=== PATIENT | male | born 1970 | race Caucasian/White ===

== ENCOUNTER 2016-10-31 07:44 | Inpatient (IN) | payer BC ==
[~2016-10-31] VITALS: Ht 182.9 cm; Wt 86.0 kg
[2016-10-31] VITALS (41 sets, daily range): BP systolic 101–150; BP diastolic 59–89; PULSE 72–94; RESP 9–20; Ht 182.9 cm; Wt 86.0 kg
[2016-10-31] MEDS ORDERED: LIDOCAINE 2% (SDV) 5 ML INJ ONE (08:24)
[2016-10-31] MEDS ORDERED: SUCCINYLCHOLINE CHLORIDE 100 MG/5 ML SYG IV ONE (08:24)
[2016-10-31] MEDS ORDERED: MIDAZOLAM 1 MG/ML 2 ML INJ ONE (08:24)
[2016-10-31] MEDS ORDERED: PROPOFOL 20 ML ONE (08:24)
[2016-10-31] MEDS ORDERED: FENTAnyl 50 MCG/ML VIAL ONE (08:24)
[2016-10-31] MEDS ORDERED: ATOR40TA68 PO (08:28)
[2016-10-31] MEDS ORDERED: ICOS1CAP PO (08:30)
[2016-10-31] MEDS ORDERED: CEFAZOLIN 2 GM/50 ML (PMX) 50 ML IVPB SCH (09:00)
[2016-10-31] MEDS ORDERED: GELATIN SIZE 100 SPONGE ONE (09:02)
[2016-10-31] MEDS ORDERED: THROMBIN 5000 UNIT VIAL ONE (09:02)
[2016-10-31] MEDS ORDERED: BUPIVACAINE 0.25% (MPF) 10 ML 10 ML VIAL ONE (09:02)
[2016-10-31] MEDS ORDERED: POLYMYXIN/BACITRACIN 1L IRRIG ONE (09:02)
[2016-10-31] MEDS ORDERED: DEXAMETHASONE 4 MG/ML 1 ML INJ ONE (09:28)
[2016-10-31] MEDS ORDERED: ONDANSETRON 4 MG INJ ONE (09:28)
[2016-10-31] MEDS ORDERED: METOCLOPRAMIDE 10 MG INJ ONE (09:28)
[2016-10-31] MEDS ORDERED: HYDROmorphONE 2 MG/ML SYG ONE (09:38)
[2016-10-31] MEDS ORDERED: LABETALOL HCL 20MG INJ ONE (09:42)
[2016-10-31] MEDS ORDERED: hydrALAzine 20 MG INJ ONE (09:45)
[2016-10-31] MEDS ORDERED: ACETAMINOPHEN 1000MG/100ML IV 100 ML ONE (09:48)
[2016-10-31] MEDS ORDERED: PROCHLORPERAZINE 10 MG INJ IV PRN (10:00)
[2016-10-31] MEDS ORDERED: MEPERIDINE 25 MG INJ IV PRN (10:00)
[2016-10-31] MEDS ORDERED: FENTAnyl 50 MCG/ML VIAL IV PRN (10:00)
[2016-10-31] MEDS ORDERED: LABETALOL HCL 20MG INJ IV PRN (10:00)
[2016-10-31] MEDS ORDERED: EPHEDrine SULFATE 50 MG/5 ML SYG IV PRN (10:00)
[2016-10-31] MEDS ORDERED: hydrALAzine 20 MG INJ IV PRN (10:00)
[2016-10-31] MEDS ORDERED: DIPHENHYDRAMINE 50 MG INJ IV PRN (10:00)
[2016-10-31] MEDS ORDERED: HYDROmorphONE (0.2 MG/ML) 10ML SYG IV PRN ×2 (10:00)
[2016-10-31] MEDS ORDERED: ONDANSETRON 4 MG INJ IV PRN ×2 (10:00→11:30)
[2016-10-31] MEDS ORDERED: SUGAMMADEX SODIUM 200 MG/2 ML VIAL IV ONE (10:07)
[2016-10-31] MEDS ORDERED: HYDROmorphONE 0.2 MG/ML PCA ONE (11:03)
[2016-10-31] MEDS ORDERED: DEXTROSE 5%-0.45% NACL 1,000 ML IV SCH (11:30)
[2016-10-31] MEDS ORDERED: ACETAMINOPHEN PO ×2 (11:30)
[2016-10-31] MEDS ORDERED: CEPASTAT LOZENGE MT PRN (11:30)
[2016-10-31] MEDS ORDERED: ZOLPIDEM 5 MG TAB PO PRN (11:30)
[2016-10-31] MEDS ORDERED: TRIMETHOBENZAMIDE IM PRN (11:30)
[2016-10-31] MEDS ORDERED: DIAZEPAM 10 MG IM PRN (11:30)
[2016-10-31] MEDS ORDERED: DIAZEPAM 5 MG TAB PO PRN (11:30)
[2016-10-31] MEDS ORDERED: ALUMINUM HYDROXIDE PO PRN (11:30)
[2016-10-31] MEDS ORDERED: DIPHENHYDRAMINE 50 MG CAP PO PRN (11:30)
[2016-10-31] MEDS ORDERED: PROCHLORPERAZINE 10 MG INJ IM PRN (11:30)
[2016-10-31] MEDS ORDERED: HYDROmorphONE 0.2 MG/ML PCA IV SCH (11:30)
[2016-10-31] MEDS ORDERED: PROCHLORPERAZINE 10 MG TAB PO PRN (11:30)
[2016-10-31] MEDS ORDERED: NALOXONE 0.4 MG IV PRN (11:30)
[2016-10-31] MEDS ORDERED: SIMETHICONE PO PRN (11:30)
[2016-10-31] MEDS ORDERED: HYDROCODONE PO ×2 (11:30)
[2016-10-31] MEDS ORDERED: MAGNESIUM HYDROXIDE PO PRN (11:30)
[2016-10-31] MEDS ORDERED: ACETAMINOPHEN 325 MG TAB PO PRN (11:30)
[2016-10-31] MEDS ORDERED: BETHANECHOL 25 MG TAB PO PRN (11:30)
[2016-10-31] MEDS: CEFAZOLIN IVPB SCH ×3 (12:00→23:46)
[2016-10-31] MEDS: DEXTROSE IVPB SCH ×3 (12:00→23:46)
--- NOTE | 2016-10-31 12:20 | RADRPT ---
PROCEDURE: XR Lumbar Spine one view. CLINICAL INDICATION: Low back pain. Intraoperative. TECHNIQUE: Prone portable cross-table lateral. COMPARISON: No prior studies are available for comparison. FINDINGS: For the purposes of this report, the last apparent true disc level is considered to be L5-S1. Based on this, the posterior needle markers are present overlying the L5-S1 level and the L5 spinous proc ess level. IMPRESSION: 1. Intraoperative imaging as described above. RPTAT: QQ .Mik Jiménez MD, Date Time Electronically viewed and signed by .Mik Jiménez MD, on 10/31/2016 12:20 .R/
--- NOTE | 2016-10-31 12:30 | RADRPT ---
PROCEDURE: XR Lumbar Spine one view. CLINICAL INDICATION: Low back pain. Intraoperative. TECHNIQUE: Prone portable cross-table lateral. COMPARISON: Prior study done earlier the same day. FINDINGS: For the purposes of this report, the last apparent true disc level is considered to be L5-S1. Based on this, the posterior surgical instrument is present overlying the L4-5 level. IMPRESSION: 1. Intraoperative imaging as described above. RPTAT: QQ .Mik Jiménez MD, MD Date Time Electronically viewed and signed by .Mik Jiménez MD, on 10/31/2016 12:30 .R/
--- NOTE | 2016-10-31 12:40 | OPR ---
DATE OF OPERATION: 10/31/2016 SURGEON: Chris Nails MD. BOARDING ROOM FIXER: yEad Knight MD. ANESTHESIOLOGIST: Dr. Brush. POSTOPERATIVE DIAGNOSIS: Herniated disc, L4-5 on the right with inferior extruded disc fragments. POSTOPERATIVE DIAGNOSIS: Herniated disc, L4-5 on the right with inferior extruded disc fragments. OPERATION PROCEDURES: 1. Right hemilaminotomy, L4. 2. Microdiskectomy L4-5 on the right. 3. Medial facetectomy, foraminotomy L4-5 on the right. 4. Cosmetic wound closure (2.6 cm). 5. Intraoperative nerve monitoring (60 minutes). 6. Lateral localizing lumbar radiographs (2). ANESTHESIA: General endotracheal. ESTIMATED BLOOD LOSS: 10 mL-none replaced. DRAINS: Two medium Hemovac drains employed. COMPLICATIONS: No complications. INDICATIONS: This is a 46-year-old male with persistent back and right leg pain which were unrelieved by conservative management. He has undergone a number of diagnostic studies including an MRI of the lumbar spine which demonstrated herniation of the L4-5 disc centrally and to the right with inferior extruded disc fragments. Treatment options discussed with the patient, electing to do surgery. OPERATIVE FINDINGS AT SURGERY: At surgery a moderate central and right paracentral herniation of the L4-5 disc was confirmed. The baseline intraoperative nerve monitoring revealed a decrease in the L5 potential on the left. A 50 percent of the L5 potential on the right of 60 percent and the S1 potentials bilaterally of 30 percent. These all returned to normal at the completion of the surgery. OPERATIVE PROCEDURE: With the patient supine position, after satisfactory induction of general endotracheal anesthesia by Dr. Brush, the patient was turned to the prone kneeling position on the Artem frame. All pressure points carefully padded. The back was prepped and draped in usual sterile fashion. Athrombic pumps were applied to the legs below the knees and venous stasis during and after the procedure. Two spinal needles placed next, felt to be the L4 and L5 spinous processes, lateral roentgenogram was taken which confirmed anatomic localization. A 2.6 cm incision encountered midline over the spinous process of L4, after the skin was infiltrated with 0.25 percent Marcaine without epinephrine for postoperative anesthesia. Superficial retractors were placed and hemostasis secure with electrocautery. Throughout the procedure copious amounts of antibacterial irrigating solution used to periodically irrigate the wound. The fascia was incised with the midline with a hot knife, and unilateral subperiosteal dissection carried out at L4 on the right. Deep retractors were placed and deep hemostasis secured electrocautery. A second intraoperative radiograph was taken with deep retractor was felt to be the L4-5 interspace, and this was confirmed on the second x-ray. A right hemilaminotomy L4 was then carried out using Leksell rongeur, Kerrison punch and curettes. Ligamentum flava was excised with sharp dissection. The operating microscope was moved into place. A medial facetectomy and foraminotomy was accomplished using small hand osteotome and mallet, Kerrison punches and curettes. The L5 root was then mobilized medially and protected with a D'Errlorna nerve root retractor using microdissection technique. This revealed a herniation of the L4-5 disc on the right. The 15 blade knife used to cut a tiny window in the anulus and posterior longitudinal ligament. Multiple and multiple degenerative disc fragments were harvested with a pituitary rongeur and sent to the lab for pathologic study. Additional fragments were harvested with Nimisha curettes. The thorough search thorough search of the floor of canal was made with an arthroscopic probe, no additional fragments were encountered. The epidural hemostasis was secured with bipolar electrocautery on a low setting. The anesthesiologist was then asked to perform a Valsalva maneuver to 40 mmHg. No spinal fluid leak was noted. The wound was then closed in layers over 2 medium Hemovac drains, 1 below the fascia, 1 above the fascia using #1 Vicryl [id number] approximating suture in deep musculature and deep fascia back. #2-0 Vicryl subcutaneous approximating sutures in subcu tissue and a #4-0 Vicryl subcuticular cosmetic closing suture on the skin. Dermabond and sterile compressive dressings were applied. The patient having tolerated the procedure well was then turned supine position onto his bed and extubated by Dr. Brush. He was transported to the Recovery room in satisfactory condition. At the conclusion of procedure, sponge, instrument counts were all correct. NEED FOR TRAFFIC COORDINATOR: During this spinal surgical procedure, my shipping assistant was used to retract and protect the spinal nerves and dural sac. My shipping assistant also employed the suction catheters to evacuate blood from the surgical field to improve visualization of the neural structures. The shipping assistant was medically necessary to facilitate the completion of the surgery in a safe and expeditious manner. State of [place] regulations, as well as hospital bylaws, preclude the use of non- licensed health care personnel such as operating room technicians, to perform these functions. Throughout the procedure neuro monitoring was carried out by [employer] including EMG, SSEP and MEP monitoring of the L3, L4, L5 and S1 nerve roots bilaterally, along with spinal cord potentials. These were interpreted by a neurologist employed by [facility] [employer] [facility]. Dictated By: Chris Nails MD /[email or web address]/paul /Document#: [id number] CC: Chris Nails MD; Isaiah Mar MD;*EndCC* MTDD
[2016-10-31] MEDS: FERROUS SULFATE (EC) 325 MG TAB PO SCH ×2 (13:00→20:53)
[2016-10-31] MEDS: NACL 0.9% 3 ML SYG IV SCH ×2 (14:00→22:04)
--- NOTE | 2016-10-31 15:06 | CONS ---
DATE OF ADMISSION: 10/31/2016 DATE OF CONSULTATION: 10/31/2016 REFERRING PHYSICIAN: Chris Nails MD REASON FOR CONSULTATION: Postoperative internal medicine consultation and medical management of a 46-year-old gentleman who just underwent surgery on his lumbar spine. Thank you, Dr. Nails for allowing us to participate in care of this patient. HISTORY OF PRESENT ILLNESS: Noah Mace, a 46-year-old gentleman, issues with his back, currently had correction of that particular problem. Patient is doing well postoperatively. He was seen in the recovery room. Still somewhat lethargic but otherwise arousable and answers appropriately. History and other factors obtained by him or primarily by his who answered most of the questions. Patient has had back issues for a while. Had several epidurals, however, had extreme pressure on the nerve and currently was admitted for a microdiskectomy and a laminectomy for corrective surgery for that problem. PAST MEDICAL HISTORY: From a surgical standpoint, had an appendectomy and also had atrial ablation for recurrent atrial tachycardia or paroxysmal atrial fibrillation, as well as had a vasectomy done in the past. He has been relatively healthy, has had episodes of atrial tachycardia/fibrillation since he was 23 years old. The last 1 lasted long enough for it to be considered one that should be ablated. MEDICATION: Include the followin. Atorvastatin 40 mg a day. 2. Icosapent ethyl 1 gram daily which he has been using to control his lipids as well. He suffers from hyperlipidemia and therefore he takes the medications.Has a history of an elevated cholesterol as well as high triglycerides,; all of those were controlled with proper diet.and medications. He has been on his current medications for about 6 months. SOCIAL HISTORY: Patient is . Has 1 daughter. Does not smoke or drink alcohol nor does he drink any coffee. FAMILY HISTORY: Noncontributory. REVIEW OF SYSTEMS: HEENT: Unremarkable. CARDIORESPIRATORY: Other than the episodes of palpitations that he had in the past is unremarkable. GASTROINTESTINAL: Unremarkable. GENITOURINARY: Unremarkable as well. PHYSICAL EXAMINATION: VITAL SIGNS: Patient's blood pressure was 115/68, respirations were 10-13, O2 sat 92 percent, and patient was afebrile. HEENT: Unremarkable. LUNGS: Clear. HEART: Revealed a regular rhythm. ABDOMEN: Was soft. Good bowel sounds were noted. NEUROLOGIC: Unremarkable. IMPRESSION: 1. Status post lumbar spine surgery. 2. Hyperlipidemia. 3. History of supra ventricular tachycardia/paroxysmal atrial fibrillation post ablation, stable. DISCUSSION: Plan is to continue some of his preoperative medicines, renewed his atorvastatin, however his icosapent will be held during this period of time.We will monitor him from a medical standpoint. Thank you again Dr. Nails for allowing us to participate in the care of this patient. Dictated By: Isaiah Mar MD /[email or web address]/goran /Document#: [id number] JULIET
[2016-10-31] MEDS: ASCORBIC ACID 500 MG TAB PO SCH (20:53)
[2016-10-31] MEDS: DOCUSATE SODIUM 100 MG CAP PO SCH (20:53)
[2016-10-31] MEDS: RANITIDINE 150 MG TAB PO SCH (20:53)
[2016-10-31] MEDS ORDERED: ATORVASTATIN 40 MG TAB PO SCH (21:00)
[2016-11-01 00:01] VITALS: BP 125/58; RESP 20
[2016-11-01 05:06] VITALS: BP 106/64; PULSE 76; RESP 18
[2016-11-01 05:30] LABS: HEMATOCRIT 40.4 % (42.0-52.0); HEMOGLOBIN 14.4 g/dl (14.0-18.0)
[2016-11-01] MEDS: CEFAZOLIN IVPB SCH (06:01)
[2016-11-01] MEDS: DEXTROSE IVPB SCH (06:01)
[2016-11-01] MEDS: NACL 0.9% 3 ML SYG IV SCH ×2 (06:02→14:00)
[2016-11-01 06:44] LABS: POTASSIUM 2.8 mmol/L (3.5-5.1)
[2016-11-01] MEDS ORDERED: POTASSIUM PHOSPHATE 40 MEQ in SOD CHLORIDE 0.9% 250 ML IVPB ONE (07:00)
--- NOTE | 2016-11-01 07:17 | PN ---
Date/Time of Note Date/Time of Note DATE: 11/01/16 TIME: 07:15 Assessment/Plan Lines/Catheters IV Catheter Type (from Nrsg): Peripheral IV Perez in Place (from Nrsg): No Subjective 24 Hr Interval Summary The patient is postop day #1 following a microdiscectomy at L4-5 on the right. He is resting comfortably in bed. Neurovascular structures are intact distally. His morning lab work revealed a potassium of 2.8, and he is receiving potassium supplementation per Dr. Burks. A repeat BMP is pending. The patient reports that he had a similar hypokalemia following a previous surgical procedure and had a workup which revealed no evidence of kidney disease. He will be mobilized as tolerated by physical therapy, and will be discharged home when cleared by physical therapy. His Hemovac had minimal drainage and was discontinued. His incision is clean and dry and was redressed. He was given strict discharge precautions and instructions as well as follow-up arrangements Exam/Review of Systems Vital Signs Vitals Vital Signs Date Time Temp Pulse Resp B/P Pulse Ox O2 Delivery O2 Flow Rate FiO2 11/01/16 05:07 18 11/01/16 05:06 98.2 76 106/64 95 Room Air 10/31/16 14:11 3.0 Intake and Output 10/31/16 10/31/16 11/01/16 15:00 23:00 07:00 Intake Total 800 ml 1400 ml Output Total 15 ml 705 ml Balance 785 ml 695 ml Results Result Diagram: 11/01/16 0442 11/01/16 0442 ANDREA SZYMANSKI MD Nov 01, 2016 07:17
[2016-11-01 07:47] VITALS: BP 103/63; RESP 18
[2016-11-01] MEDS ORDERED: BETHANECHOL 25 MG TAB PO PRN (08:00)
--- NOTE | 2016-11-01 08:21 | CONS ---
Date/Time of Note Date/Time of Note DATE: 11/01/16 TIME: 08:13 Consult Date/Type/Reason Admit Date/Time Oct 31, 2016 at 07:44 Initial Consult Date 10/31/2016 Type of Consultation: internal medicine Reason for Consultation medical f/u Ordering Provider: ANDREA SZYMANSKI MD Subjective alert feels better at this point.had issues with potassium on prior hospitalizations Objective Vital Signs Date Time Temp Pulse Resp B/P Pulse Ox O2 Delivery O2 Flow Rate FiO2 11/01/16 07:47 98.1 65 18 103/63 95 11/01/16 05:06 Room Air 10/31/16 14:11 3.0 Intake and Output 10/31/16 10/31/16 11/01/16 15:00 23:00 07:00 Intake Total 800 ml 1400 ml Output Total 15 ml 705 ml Balance 785 ml 695 ml Exam vss heent negative lungs clear heart regular rhythm abdomen soft Results/Medications Result Diagram: 11/01/16 0442 11/01/16 0442 Results 24 hrs Laboratory Tests Test 11/01/16 04:42 Hemoglobin 14.4 Hematocrit 40.4 L Sodium Level 137 Potassium Level 2.8 *L Chloride Level 99 Carbon Dioxide Level 30 Anion Gap 11 Medications Current Medications Hydromorphone HCl (Dilaudid CUSHION FORMER) 0.3 MG LOADING DOSE... Q4PCA IV Last administered on 10/31/16t 14:09; Admin Dose 0.2 MG; Start 10/31/16 at 11:30 Naloxone HCl (Narcan) 0.2 mg Q2M PRN IV DECREASED REPIRATORY RATE; Start at 11:30 Acetaminophen/ Hydrocodone Bitart ([place] (5/325)) 1 tab Q4H PRN PO PAIN LEVEL 1 -5; Start 10/31/16 at 11:30 Acetaminophen/ Hydrocodone Bitart ([place] (5/325)) 2 tab Q4H PRN PO PAIN LEVEL 6 -10; Start 10/31/16 at 11:30 Zolpidem Tartrate (Ambien) 5 mg HS PRN PO INSOMNIA; Start 10/31/16 at 11:30 Prochlorperazine (Compazine) 10 mg Q4H PRN PO NAUSEA AND/OR VOMITING; Start at 11:30 Prochlorperazine (Compazine Inj) 10 mg Q4H PRN IM NAUSEA AND/OR VOMITING; Start 10/31/16 at 11:30 Trimethobenzamide HCl (Tigan) 200 mg Q4H PRN IM NAUSEA AND/OR VOMITING; Start 10/31/16 at 11:30 Ondansetron HCl (Zofran Inj) 4 mg Q6H PRN IV NAUSEA AND/OR VOMITING; Start at 11:30 Al Hydrox/Mg Hydrox/Simethicone (Mag-Al Plus) 15 ml Q4H PRN PO CONSTIPATION; Start 10/31/16 at 11:30 Docusate Sodium (Colace) 100 mg BID PO Last administered on 10/31/16 20:53; Admin Dose 100 MG; Start 10/31/16 at 21:00 Acetaminophen (Tylenol Tab) 650 mg Q4H PRN PO PAIN AND OR ELEVATED TEMP; Start 10/31/16 at 11:30 Ascorbic Acid (Vitamin C) 1,000 mg BID PO Last administered on 10/31/16 20:53 ; Admin Dose 1,000 MG; Start 10/31/16 at 21:00 Ferrous Sulfate (Ferrous Sulfate (Ec)) 325 mg TID PO Last administered on 20:53; Admin Dose 325 MG; Start 10/31/16 at 13:00 Ranitidine HCl (Zantac) 150 mg BID PO Last administered on 10/31/16 20:53; Admin Dose 150 MG; Start 10/31/16 at 21:00 Diazepam (Valium) 5 mg Q4H PRN PO MUSCLE SPASMS; Start 10/31/16 at 11:30 Diazepam (Valium) 5 mg Q4H PRN IM MUSCLE SPASMS; Start 10/31/16 at 11:30 Bethanechol Chloride (Urecholine) 25 mg Q4H PRN PO UNABLE TO VOID Last administered on 10/31/16 18:04; Admin Dose 25 MG; Start 10/31/16 at 11:30 Diphenhydramine HCl (Benadryl) 50 mg Q6H PRN PO PRURITUS; Start 10/31/16 at 11: 30 IV Flush (NS 3 ml) 3 ml Q8 IV Last administered on 11/01/16 06:02; Admin Dose 3 ML; Start 10/31/16 at 14:00 Atorvastatin Calcium 40 mg 40 mg QHS PO Last administered on 10/31/16t 20:53; Admin Dose 40 MG; Start 10/31/16 at 21:00 Potassium Phosphate/Sodium Chloride (K Phos (Meq)/NS) 259.0909 ml @ 64.773 m... ONCE ONCE IVPB ; Start 11/01/16 at 07:00; Stop 11/01/16 at 10:59 Bethanechol Chloride (Urecholine) 25 mg PRN PRN PO UNABLE TO VOID; Start at 08:00 Assessment/Plan Chief Complaint/Hosp Course feels better got out of bed.pain down his leg resolved Problems: Additional Assessment/Plan plan await repeat K however in view of past history probably real. will foolow with you thank you JERILYN Reynolds MD Nov 01, 2016 08:21
[2016-11-01 08:24] LABS: CALCIUM 8.9 mg/dl (8.4-10.2); CREATININE 0.89 mg/dl (0.61-1.24)
[2016-11-01 08:31] LABS: POTASSIUM 2.9 mmol/L (3.5-5.1)
[2016-11-01] MEDS ORDERED: POTASSIUM CHLORIDE (SR) 20 MEQ TAB PO SCH (09:00)
[2016-11-01] MEDS: DOCUSATE SODIUM 100 MG CAP PO SCH (09:21)
[2016-11-01] MEDS: ASCORBIC ACID 500 MG TAB PO SCH (09:21)
[2016-11-01] MEDS: FERROUS SULFATE (EC) 325 MG TAB PO SCH ×2 (09:21→13:00)
[2016-11-01] MEDS: RANITIDINE 150 MG TAB PO SCH (09:21)
[2016-11-01 14:30] VITALS: BP 114/64; RESP 18
--- NOTE | 2016-11-19 08:50 | DS ---
Date/Time of Note Date/Time of Note DATE: 11/19/16 TIME: 08:49 Discharge Summary Admission/Discharge Info Admit Date/Time Oct 31, 2016 at 07:44 Discharge Date/Time Nov 01, 2016 at 17:00 Discharge Diagnosis Herniated disc, L4-5 on the right with inferior extruded disc fragments. Patient Condition: Good Hospital Course Patient did well postoperatively. His pain was well controlled. His diet and activity were advanced as tolerated. He was discharged home in good condition on postop day #1 Home Meds Reported Medications Icosapent Ethyl (VASCEPA) 1 Gm Capsule, 1 GM PO DAILY, CAP 10/31/16 Atorvastatin* (Atorvastatin*) 40 Mg Tablet, 40 MG PO QHS, #30 TAB 10/31/16 Follow-up Plan Follow-up with Dr. Nails in 1-2 weeks Primary Care Provider Not On Staff KATIE Schultz Nov 19, 2016 08:50
== END 2016-11-01 17:00 | disposition home or self-care (01) | DRG 520 ==
LOC: REC 07:44 → MS1 14:36
PROVIDERS: ADMIT Orthopaedic Surgery; ATTEND Orthopaedic Surgery
PROC: 0SB20ZZ Excision of Lumbar Vertebral Disc, Open Approach (ICD-10-PCS; principal; 2016-10-31 11:30)
DX: M51.26 Other intervertebral disc displacement, lumbar region (principal)
CPT/HCPCS: 72020; 80048; 80051; 84132; 85014; 85018; 86850; 86900; 86901; 86920; 97116; 97162; 97530; J0131; J0360; J0690; J1100; J1170; J2175; J2250; J2405; J2765; J3010; J7050; J7999